=== PATIENT | male | born 1940 | race American Indian/Alaskan Native ===

== ENCOUNTER 2020-06-26 09:39 | Emergency (ER) | payer OTHER ==
[2020-06-26] MEDS ORDERED: DEXTROSE 50% IN WATER (25GM) 50 ML SYRINGE IV ONE ×2 (10:15→11:07)
[2020-06-26] MEDS ORDERED: SODIUM CHLORIDE 0.9% 1000 ML 1,000 ML IV ONE ×3 (10:15→13:26)
--- NOTE | 2020-06-26 10:19 | Emergency Department Report ---
HPI - General Time Seen by Provider: 06/26/20 09:57 - HPI HPI: This is an 79-year-old -[place] male who presents to the emergency department via EMS from home after a welfare check was done and the patient was found to be prone on the floor covered in his own urine. The patient has a history of hypertension, remote prostate cancer, and he had recent left foot surgery done by a inspector subassembly about 1 week ago. The patient was last seen normal/well sometime Monday, by a neighbor. The patient's daughter is currently at bedside and says that she also spoke to him on Monday. The patient lives alone, but normally is able to take care of all of his ADLs. The patient is sleepy, but easily arousable. He is oriented to person, place, time, AAO x3, but still is a poor historian. He is currently incontinent of urine and appears to have some left-sided weakness. The patient was found to have a blood sugar of 47 with EMS. ED Review of Systems ROS: Stated complaint: ALTERED MENTAL STATUS Other details as noted in HPI Comment: Unobtainable due to pts medical conditions Constitutional: weakness Musculoskeletal: arthralgia (Left foot) Neurological: weakness Physical Exam - Physical Exam Physical Exam: GENERAL: Disheveled appearance. Patient is ill-appearing. HENT: Normocephalic. Atraumatic. Patient has dry mucous membranes. EYES: Extraocular motions are intact. Pupils equal reactive to light bilaterally. NECK: Supple. Trachea is midline. CHEST/LUNGS: Clear to auscultation. There is no respiratory distress noted. HEART/CARDIOVASCULAR: Regular. There is moderate tachycardia. There is no murmur. ABDOMEN: Abdomen is soft, nontender. Patient has normal bowel sounds. There is no abdominal distention. SKIN: Skin is warm and dry. The left foot is wet and macerated. There is an ulcerating wound to the left heel. NEURO: The patient is awake, alert, and oriented. The patient is cooperative. There is some slurred speech. Left-sided weakness when compared to right. MUSCULOSKELETAL: There is no tenderness to palpation. ED Course - Reevaluation(s) Reevaluation #1: 06/26/20 10:38 The patient is an 8 on the NIH stroke scale. Last known well time was sometime Wednesday, at least 36 hours ago. Therefore the patient is not a candidate for TPA or thrombectomy. - Consultations Consultation #1: I spoke with the patient's inspector subassembly, Dr. Melisa Herrera. He says that he is able and willing to consult on this patient if he gets admitted to [facility]. The transfer hub is paging the hospitalist service. 06/26/20 13:41 Consultation #2: 06/26/20 15:05 I have spoken to the hospitalist, Dr. Gannon, regarding the patient's presentation and ED course. She felt the patient would be a more appropriately taken care of in the MICU. I spoke to the software implementation specialist, Dr. Box, who has accepted the patient for transfer to the [place] [facility]. He has requested that the patient receive clindamycin and an antibiotic for anaerobic coverage. - ABG Interpretation Ph: 7.349 PCO2: 17 PO2: 122 Bicarbonate: 9.5 Interpretation: respiratory alkalosis, metabolic acidosis ED Medical Decision Making - Lab Data Result diagrams: 06/26/20 10:57 06/26/20 10:57 Lab Results 06/26/20 06/26/20 06/26/20 Range/Units 10:16 10:40 10:57 WBC 23.7 H (4.5-11.0) K/mm3 RBC 4.70 (3.65-5.03) M/mm3 Hgb 12.7 (11.8-15.2) gm/dl Hct 38.5 (35.5-45.6) % MCV 82 L (84-94) fl MCH 27 L (28-32) pg MCHC 33 (32-34) % RDW 17.2 H (13.2-15.2) % Plt Count 74 L (140-440) K/mm3 Add Manual Diff Complete Total Counted 100 Seg Neuts % (Manual) 90.0 H (40.0-70.0) % Lymphocytes % (Manual) 8.0 L (13.4-35.0) % Monocytes % (Manual) 2.0 (0.0-7.3) % Nucleated RBC % Not Reportable Seg Neutrophils # Man 21.3 H (1.8-7.7) K/mm3 Band Neutrophils # 0.0 K/mm3 Lymphocytes # (Manual) 1.9 (1.2-5.4) K/mm3 Abs React Lymphs (Man) 0.0 K/mm3 Monocytes # (Manual) 0.5 (0.0-0.8) K/mm3 Eosinophils # (Manual) 0.0 (0.0-0.4) K/mm3 Basophils # (Manual) 0.0 (0.0-0.1) K/mm3 Metamyelocytes # 0.0 K/mm3 Myelocytes # 0.0 K/mm3 Promyelocytes # 0.0 K/mm3 Blast Cells # 0.0 K/mm3 WBC Morphology Not Reportable Hypersegmented Neuts Not Reportable Hyposegmented Neuts Not Reportable Hypogranular Neuts Not Reportable Smudge Cells Not Reportable Toxic Granulation Not Reportable Toxic Vacuolation Not Reportable Dohle Bodies Not Reportable Pelger-Huet Anomaly Not Reportable Michael Rods Not Reportable Platelet Estimate Consistent w auto Clumped Platelets Not Reportable Plt Clumps, EDTA Not Reportable Large Platelets Not Reportable Giant Platelets Not Reportable Platelet Satelliting Not Reportable Plt Morphology Comment Not Reportable RBC Morphology Not Reportable Dimorphic RBCs Not Reportable Polychromasia Not Reportable Hypochromasia Not Reportable Poikilocytosis Not Reportable Anisocytosis Not Reportable Microcytosis Not Reportable Macrocytosis Not Reportable Spherocytes Not Reportable Pappenheimer Bodies Not Reportable Sickle Cells Not Reportable Target Cells Not Reportable Tear Drop Cells Not Reportable Ovalocytes Not Reportable Helmet Cells Not Reportable Velazquez-Samoset Bodies Not Reportable [place] Rings Not Reportable Bong Cells 1+ Bite Cells Not Reportable Crenated Cell Not Reportable Elliptocytes Not Reportable Acanthocytes (Spur) Rare Rouleaux Not Reportable Hemoglobin C Crystals Not Reportable Schistocytes Rare Malaria parasites Not Reportable Mk Bodies Not Reportable Hem Pathologist Commnt No PT (12.2-14.9) Sec. INR (0.87-1.13) APTT (24.2-36.6) Sec. ABG pH (7.320-7.450) POC ABG pCO2 (32.0-48.0) mmHg POC ABG pO2 (83-108) mmHg POC ABG HCO3 POC ABG Base Excess ABG Hemoglobin (12.0-17.5) ABG Oxyhemoglobin (94-98) ABG Methemoglobin (0.0-1.5) ABG Sodium (136.0-145.0) mmol/L ABG Potassium (3.40-4.50) mmol/L ABG Chloride (98-107) mmol/L ABG Glucose (65-95) mg/dL Carboxyhemoglobin (0.5-1.5) FiO2 Sodium (137-145) mmol/L Potassium (3.6-5.0) mmol/L Chloride (98-107) mmol/L Carbon Dioxide (22-30) mmol/L Anion Gap mmol/L BUN (9-20) mg/dL Creatinine (0.8-1.3) mg/dL Estimated GFR ml/min BUN/Creatinine Ratio % Glucose (75-100) mg/dL POC Glucose 37 L < 10 L (70-105) mg/dL Lactic Acid (0.7-2.0) mmol/L Calcium (8.4-10.2) mg/dL Total Bilirubin (0.1-1.2) mg/dL AST (5-40) units/L ALT (7-56) units/L Alkaline Phosphatase (35-129) units/L Ammonia (25-60) umol/L Total Creatine Kinase (55-170) units/L Troponin T (0.00-0.029) ng/mL Total Protein (6.3-8.2) g/dL Albumin (3.9-5) g/dL Albumin/Globulin Ratio % Triglycerides (2-149) mg/dL Cholesterol (50-199) mg/dL LDL Cholesterol Direct (50-130) mg/dL HDL Cholesterol (40-59) mg/dL Cholesterol/HDL Ratio % TSH (0.270-4.200) mlU/mL Arterial Blood Glucose (65-95) mg/dL Arterial Blood Ionized Calcium (4.6-5.3) mg/dL Urine Color (Yellow) Urine Turbidity (Clear) Urine pH (5.0-7.0) Ur Specific [place] (1.003-1.030) Urine Protein (Negative) mg/dL Urine Glucose (UA) (Negative) mg/dL Urine Ketones (Negative) mg/dL Urine Blood (Negative) Urine Nitrite (Negative) Urine Bilirubin (Negative) Urine Urobilinogen (<2.0) mg/dL Ur Leukocyte Esterase (Negative) Urine WBC (Auto) (0.0-6.0) /HPF Urine RBC (Auto) (0.0-6.0) /HPF Hyaline Casts /LPF Urine Opiates Screen Urine Methadone Screen Ur Barbiturates Screen Ur Phencyclidine Scrn Ur Amphetamines Screen U Benzodiazepines Scrn Urine Cocaine Screen U Marijuana (THC) Screen Drugs of Abuse Note Plasma/Serum Alcohol (0-0.07) % 06/26/20 06/26/20 06/26/20 Range/Units 10:57 10:57 10:57 WBC (4.5-11.0) K/mm3 RBC (3.65-5.03) M/mm3 Hgb (11.8-15.2) gm/dl Hct (35.5-45.6) % MCV (84-94) fl MCH (28-32) pg MCHC (32-34) % RDW (13.2-15.2) % Plt Count (140-440) K/mm3 Add Manual Diff Total Counted Seg Neuts % (Manual) (40.0-70.0) % Lymphocytes % (Manual) (13.4-35.0) % Monocytes % (Manual) (0.0-7.3) % Nucleated RBC % Seg Neutrophils # Man (1.8-7.7) K/mm3 Band Neutrophils # K/mm3 Lymphocytes # (Manual) (1.2-5.4) K/mm3 Abs React Lymphs (Man) K/mm3 Monocytes # (Manual) (0.0-0.8) K/mm3 Eosinophils # (Manual) (0.0-0.4) K/mm3 Basophils # (Manual) (0.0-0.1) K/mm3 Metamyelocytes # K/mm3 Myelocytes # K/mm3 Promyelocytes # K/mm3 Blast Cells # K/mm3 WBC Morphology Hypersegmented Neuts Hyposegmented Neuts Hypogranular Neuts Smudge Cells Toxic Granulation Toxic Vacuolation Dohle Bodies Pelger-Huet Anomaly Michael Rods Platelet Estimate Clumped Platelets Plt Clumps, EDTA Large Platelets Giant Platelets Platelet Satelliting Plt Morphology Comment RBC Morphology Dimorphic RBCs Polychromasia Hypochromasia Poikilocytosis Anisocytosis Microcytosis Macrocytosis Spherocytes Pappenheimer Bodies Sickle Cells Target Cells Tear Drop Cells Ovalocytes Helmet Cells Velazquez-Samoset Bodies [place] Rings Amite Cells Bite Cells Crenated Cell Elliptocytes Acanthocytes (Spur) Rouleaux Hemoglobin C Crystals Schistocytes Malaria parasites Mk Bodies Hem Pathologist Commnt PT 17.9 H (12.2-14.9) Sec. INR 1.49 H (0.87-1.13) APTT 34.6 (24.2-36.6) Sec. ABG pH (7.320-7.450) POC ABG pCO2 (32.0-48.0) mmHg POC ABG pO2 (83-108) mmHg POC ABG HCO3 POC ABG Base Excess ABG Hemoglobin (12.0-17.5) ABG Oxyhemoglobin (94-98) ABG Methemoglobin (0.0-1.5) ABG Sodium (136.0-145.0) mmol/L ABG Potassium (3.40-4.50) mmol/L ABG Chloride (98-107) mmol/L ABG Glucose (65-95) mg/dL Carboxyhemoglobin (0.5-1.5) FiO2 Sodium 127 L (137-145) mmol/L Potassium 4.5 (3.6-5.0) mmol/L Chloride 88.1 L (98-107) mmol/L Carbon Dioxide 12 L (22-30) mmol/L Anion Gap 31 mmol/L BUN 126 H (9-20) mg/dL Creatinine 6.5 H (0.8-1.3) mg/dL Estimated GFR 10 ml/min BUN/Creatinine Ratio 19 % Glucose 389 H (75-100) mg/dL POC Glucose (70-105) mg/dL Lactic Acid 3.70 H* (0.7-2.0) mmol/L Calcium 7.0 L (8.4-10.2) mg/dL Total Bilirubin 1.90 H (0.1-1.2) mg/dL AST 355 H (5-40) units/L ALT 227 H (7-56) units/L Alkaline Phosphatase 121 (35-129) units/L Ammonia (25-60) umol/L Total Creatine Kinase (55-170) units/L Troponin T 0.145 H* (0.00-0.029) ng/mL Total Protein 5.1 L (6.3-8.2) g/dL Albumin 2.3 L (3.9-5) g/dL Albumin/Globulin Ratio 0.8 % Triglycerides 72 (2-149) mg/dL Cholesterol 58 (50-199) mg/dL LDL Cholesterol Direct 10 L (50-130) mg/dL HDL Cholesterol 22 L (40-59) mg/dL Cholesterol/HDL Ratio 2.63 % TSH (0.270-4.200) mlU/mL Arterial Blood Glucose (65-95) mg/dL Arterial Blood Ionized Calcium (4.6-5.3) mg/dL Urine Color (Yellow) Urine Turbidity (Clear) Urine pH (5.0-7.0) Ur Specific [place] (1.003-1.030) Urine Protein (Negative) mg/dL Urine Glucose (UA) (Negative) mg/dL Urine Ketones (Negative) mg/dL Urine Blood (Negative) Urine Nitrite (Negative) Urine Bilirubin (Negative) Urine Urobilinogen (<2.0) mg/dL Ur Leukocyte Esterase (Negative) Urine WBC (Auto) (0.0-6.0) /HPF Urine RBC (Auto) (0.0-6.0) /HPF Hyaline Casts /LPF Urine Opiates Screen Urine Methadone Screen Ur Barbiturates Screen Ur Phencyclidine Scrn Ur Amphetamines Screen U Benzodiazepines Scrn Urine Cocaine Screen U Marijuana (THC) Screen Drugs of Abuse Note Plasma/Serum Alcohol (0-0.07) % 06/26/20 06/26/20 06/26/20 Range/Units 10:57 10:57 10:57 WBC (4.5-11.0) K/mm3 RBC (3.65-5.03) M/mm3 Hgb (11.8-15.2) gm/dl Hct (35.5-45.6) % MCV (84-94) fl MCH (28-32) pg MCHC (32-34) % RDW (13.2-15.2) % Plt Count (140-440) K/mm3 Add Manual Diff Total Counted Seg Neuts % (Manual) (40.0-70.0) % Lymphocytes % (Manual) (13.4-35.0) % Monocytes % (Manual) (0.0-7.3) % Nucleated RBC % Seg Neutrophils # Man (1.8-7.7) K/mm3 Band Neutrophils # K/mm3 Lymphocytes # (Manual) (1.2-5.4) K/mm3 Abs React Lymphs (Man) K/mm3 Monocytes # (Manual) (0.0-0.8) K/mm3 Eosinophils # (Manual) (0.0-0.4) K/mm3 Basophils # (Manual) (0.0-0.1) K/mm3 Metamyelocytes # K/mm3 Myelocytes # K/mm3 Promyelocytes # K/mm3 Blast Cells # K/mm3 WBC Morphology Hypersegmented Neuts Hyposegmented Neuts Hypogranular Neuts Smudge Cells Toxic Granulation Toxic Vacuolation Dohle Bodies Pelger-Huet Anomaly Michael Rods Platelet Estimate Clumped Platelets Plt Clumps, EDTA Large Platelets Giant Platelets Platelet Satelliting Plt Morphology Comment RBC Morphology Dimorphic RBCs Polychromasia Hypochromasia Poikilocytosis Anisocytosis Microcytosis Macrocytosis Spherocytes Pappenheimer Bodies Sickle Cells Target Cells Tear Drop Cells Ovalocytes Helmet Cells Velazquez-Samoset Bodies [place] Rings Amite Cells Bite Cells Crenated Cell Elliptocytes Acanthocytes (Spur) Rouleaux Hemoglobin C Crystals Schistocytes Malaria parasites Mk Bodies Hem Pathologist Commnt PT (12.2-14.9) Sec. INR (0.87-1.13) APTT (24.2-36.6) Sec. ABG pH (7.320-7.450) POC ABG pCO2 (32.0-48.0) mmHg POC ABG pO2 (83-108) mmHg POC ABG HCO3 POC ABG Base Excess ABG Hemoglobin (12.0-17.5) ABG Oxyhemoglobin (94-98) ABG Methemoglobin (0.0-1.5) ABG Sodium (136.0-145.0) mmol/L ABG Potassium (3.40-4.50) mmol/L ABG Chloride (98-107) mmol/L ABG Glucose (65-95) mg/dL Carboxyhemoglobin (0.5-1.5) FiO2 Sodium (137-145) mmol/L Potassium (3.6-5.0) mmol/L Chloride (98-107) mmol/L Carbon Dioxide (22-30) mmol/L Anion Gap mmol/L BUN (9-20) mg/dL Creatinine (0.8-1.3) mg/dL Estimated GFR ml/min BUN/Creatinine Ratio % Glucose (75-100) mg/dL POC Glucose (70-105) mg/dL Lactic Acid (0.7-2.0) mmol/L Calcium (8.4-10.2) mg/dL Total Bilirubin (0.1-1.2) mg/dL AST (5-40) units/L ALT (7-56) units/L Alkaline Phosphatase (35-129) units/L Ammonia 23.0 L (25-60) umol/L Total Creatine Kinase 3468 H (55-170) units/L Troponin T (0.00-0.029) ng/mL Total Protein (6.3-8.2) g/dL Albumin (3.9-5) g/dL Albumin/Globulin Ratio % Triglycerides (2-149) mg/dL Cholesterol (50-199) mg/dL LDL Cholesterol Direct (50-130) mg/dL HDL Cholesterol (40-59) mg/dL Cholesterol/HDL Ratio % TSH (0.270-4.200) mlU/mL Arterial Blood Glucose (65-95) mg/dL Arterial Blood Ionized Calcium (4.6-5.3) mg/dL Urine Color (Yellow) Urine Turbidity (Clear) Urine pH (5.0-7.0) Ur Specific [place] (1.003-1.030) Urine Protein (Negative) mg/dL Urine Glucose (UA) (Negative) mg/dL Urine Ketones (Negative) mg/dL Urine Blood (Negative) Urine Nitrite (Negative) Urine Bilirubin (Negative) Urine Urobilinogen (<2.0) mg/dL Ur Leukocyte Esterase (Negative) Urine WBC (Auto) (0.0-6.0) /HPF Urine RBC (Auto) (0.0-6.0) /HPF Hyaline Casts /LPF Urine Opiates Screen Urine Methadone Screen Ur Barbiturates Screen Ur Phencyclidine Scrn Ur Amphetamines Screen U Benzodiazepines Scrn Urine Cocaine Screen U Marijuana (THC) Screen Drugs of Abuse Note Plasma/Serum Alcohol < 0.01 (0-0.07) % 06/26/20 06/26/20 06/26/20 Range/Units 10:57 10:58 11:21 WBC (4.5-11.0) K/mm3 RBC (3.65-5.03) M/mm3 Hgb (11.8-15.2) gm/dl Hct (35.5-45.6) % MCV (84-94) fl MCH (28-32) pg MCHC (32-34) % RDW (13.2-15.2) % Plt Count (140-440) K/mm3 Add Manual Diff Total Counted Seg Neuts % (Manual) (40.0-70.0) % Lymphocytes % (Manual) (13.4-35.0) % Monocytes % (Manual) (0.0-7.3) % Nucleated RBC % Seg Neutrophils # Man (1.8-7.7) K/mm3 Band Neutrophils # K/mm3 Lymphocytes # (Manual) (1.2-5.4) K/mm3 Abs React Lymphs (Man) K/mm3 Monocytes # (Manual) (0.0-0.8) K/mm3 Eosinophils # (Manual) (0.0-0.4) K/mm3 Basophils # (Manual) (0.0-0.1) K/mm3 Metamyelocytes # K/mm3 Myelocytes # K/mm3 Promyelocytes # K/mm3 Blast Cells # K/mm3 WBC Morphology Hypersegmented Neuts Hyposegmented Neuts Hypogranular Neuts Smudge Cells Toxic Granulation Toxic Vacuolation Dohle Bodies Pelger-Huet Anomaly Michael Rods Platelet Estimate Clumped Platelets Plt Clumps, EDTA Large Platelets Giant Platelets Platelet Satelliting Plt Morphology Comment RBC Morphology Dimorphic RBCs Polychromasia Hypochromasia Poikilocytosis Anisocytosis Microcytosis Macrocytosis Spherocytes Pappenheimer Bodies Sickle Cells Target Cells Tear Drop Cells Ovalocytes Helmet Cells Velazquez-Samoset Bodies [place] Rings Amite Cells Bite Cells Crenated Cell Elliptocytes Acanthocytes (Spur) Rouleaux Hemoglobin C Crystals Schistocytes Malaria parasites Mk Bodies Hem Pathologist Commnt PT (12.2-14.9) Sec. INR (0.87-1.13) APTT (24.2-36.6) Sec. ABG pH (7.320-7.450) POC ABG pCO2 (32.0-48.0) mmHg POC ABG pO2 (83-108) mmHg POC ABG HCO3 POC ABG Base Excess ABG Hemoglobin (12.0-17.5) ABG Oxyhemoglobin (94-98) ABG Methemoglobin (0.0-1.5) ABG Sodium (136.0-145.0) mmol/L ABG Potassium (3.40-4.50) mmol/L ABG Chloride (98-107) mmol/L ABG Glucose (65-95) mg/dL Carboxyhemoglobin (0.5-1.5) FiO2 Sodium (137-145) mmol/L Potassium (3.6-5.0) mmol/L Chloride (98-107) mmol/L Carbon Dioxide (22-30) mmol/L Anion Gap mmol/L BUN (9-20) mg/dL Creatinine (0.8-1.3) mg/dL Estimated GFR ml/min BUN/Creatinine Ratio % Glucose (75-100) mg/dL POC Glucose 167 H (70-105) mg/dL Lactic Acid (0.7-2.0) mmol/L Calcium (8.4-10.2) mg/dL Total Bilirubin (0.1-1.2) mg/dL AST (5-40) units/L ALT (7-56) units/L Alkaline Phosphatase (35-129) units/L Ammonia (25-60) umol/L Total Creatine Kinase (55-170) units/L Troponin T (0.00-0.029) ng/mL Total Protein (6.3-8.2) g/dL Albumin (3.9-5) g/dL Albumin/Globulin Ratio % Triglycerides (2-149) mg/dL Cholesterol (50-199) mg/dL LDL Cholesterol Direct (50-130) mg/dL HDL Cholesterol (40-59) mg/dL Cholesterol/HDL Ratio % TSH 2.570 (0.270-4.200) mlU/mL Arterial Blood Glucose (65-95) mg/dL Arterial Blood Ionized Calcium (4.6-5.3) mg/dL Urine Color Yellow (Yellow) Urine Turbidity Slightly-cloudy (Clear) Urine pH 5.0 (5.0-7.0) Ur Specific [place] 1.013 (1.003-1.030) Urine Protein 100 mg/dl (Negative) mg/dL Urine Glucose (UA) 150 (Negative) mg/dL Urine Ketones Neg (Negative) mg/dL Urine Blood Lg (Negative) Urine Nitrite Neg (Negative) Urine Bilirubin Neg (Negative) Urine Urobilinogen 2.0 (<2.0) mg/dL Ur Leukocyte Esterase Neg (Negative) Urine WBC (Auto) 3.0 (0.0-6.0) /HPF Urine RBC (Auto) 2.0 (0.0-6.0) /HPF Hyaline Casts 1 /LPF Urine Opiates Screen Urine Methadone Screen Ur Barbiturates Screen Ur Phencyclidine Scrn Ur Amphetamines Screen U Benzodiazepines Scrn Urine Cocaine Screen U Marijuana (THC) Screen Drugs of Abuse Note Plasma/Serum Alcohol (0-0.07) % 06/26/20 06/26/20 06/26/20 Range/Units 11:21 12:02 12:25 WBC (4.5-11.0) K/mm3 RBC (3.65-5.03) M/mm3 Hgb (11.8-15.2) gm/dl Hct (35.5-45.6) % MCV (84-94) fl MCH (28-32) pg MCHC (32-34) % RDW (13.2-15.2) % Plt Count (140-440) K/mm3 Add Manual Diff Total Counted Seg Neuts % (Manual) (40.0-70.0) % Lymphocytes % (Manual) (13.4-35.0) % Monocytes % (Manual) (0.0-7.3) % Nucleated RBC % Seg Neutrophils # Man (1.8-7.7) K/mm3 Band Neutrophils # K/mm3 Lymphocytes # (Manual) (1.2-5.4) K/mm3 Abs React Lymphs (Man) K/mm3 Monocytes # (Manual) (0.0-0.8) K/mm3 Eosinophils # (Manual) (0.0-0.4) K/mm3 Basophils # (Manual) (0.0-0.1) K/mm3 Metamyelocytes # K/mm3 Myelocytes # K/mm3 Promyelocytes # K/mm3 Blast Cells # K/mm3 WBC Morphology Hypersegmented Neuts Hyposegmented Neuts Hypogranular Neuts Smudge Cells Toxic Granulation Toxic Vacuolation Dohle Bodies Pelger-Huet Anomaly Michael Rods Platelet Estimate Clumped Platelets Plt Clumps, EDTA Large Platelets Giant Platelets Platelet Satelliting Plt Morphology Comment RBC Morphology Dimorphic RBCs Polychromasia Hypochromasia Poikilocytosis Anisocytosis Microcytosis Macrocytosis Spherocytes Pappenheimer Bodies Sickle Cells Target Cells Tear Drop Cells Ovalocytes Helmet Cells Velazquez-Samoset Bodies [place] Rings Amite Cells Bite Cells Crenated Cell Elliptocytes Acanthocytes (Spur) Rouleaux Hemoglobin C Crystals Schistocytes Malaria parasites Mk Bodies Hem Pathologist Commnt PT (12.2-14.9) Sec. INR (0.87-1.13) APTT (24.2-36.6) Sec. ABG pH (7.320-7.450) POC ABG pCO2 (32.0-48.0) mmHg POC ABG pO2 (83-108) mmHg POC ABG HCO3 POC ABG Base Excess ABG Hemoglobin (12.0-17.5) ABG Oxyhemoglobin (94-98) ABG Methemoglobin (0.0-1.5) ABG Sodium (136.0-145.0) mmol/L ABG Potassium (3.40-4.50) mmol/L ABG Chloride (98-107) mmol/L ABG Glucose (65-95) mg/dL Carboxyhemoglobin (0.5-1.5) FiO2 Sodium (137-145) mmol/L Potassium (3.6-5.0) mmol/L Chloride (98-107) mmol/L Carbon Dioxide (22-30) mmol/L Anion Gap mmol/L BUN (9-20) mg/dL Creatinine (0.8-1.3) mg/dL Estimated GFR ml/min BUN/Creatinine Ratio % Glucose (75-100) mg/dL POC Glucose 247 H (70-105) mg/dL Lactic Acid 3.80 H* (0.7-2.0) mmol/L Calcium (8.4-10.2) mg/dL Total Bilirubin (0.1-1.2) mg/dL AST (5-40) units/L ALT (7-56) units/L Alkaline Phosphatase (35-129) units/L Ammonia (25-60) umol/L Total Creatine Kinase (55-170) units/L Troponin T (0.00-0.029) ng/mL Total Protein (6.3-8.2) g/dL Albumin (3.9-5) g/dL Albumin/Globulin Ratio % Triglycerides (2-149) mg/dL Cholesterol (50-199) mg/dL LDL Cholesterol Direct (50-130) mg/dL HDL Cholesterol (40-59) mg/dL Cholesterol/HDL Ratio % TSH (0.270-4.200) mlU/mL Arterial Blood Glucose (65-95) mg/dL Arterial Blood Ionized Calcium (4.6-5.3) mg/dL Urine Color (Yellow) Urine Turbidity (Clear) Urine pH (5.0-7.0) Ur Specific [place] (1.003-1.030) Urine Protein (Negative) mg/dL Urine Glucose (UA) (Negative) mg/dL Urine Ketones (Negative) mg/dL Urine Blood (Negative) Urine Nitrite (Negative) Urine Bilirubin (Negative) Urine Urobilinogen (<2.0) mg/dL Ur Leukocyte Esterase (Negative) Urine WBC (Auto) (0.0-6.0) /HPF Urine RBC (Auto) (0.0-6.0) /HPF Hyaline Casts /LPF Urine Opiates Screen Negative Urine Methadone Screen Negative Ur Barbiturates Screen Negative Ur Phencyclidine Scrn Negative Ur Amphetamines Screen Negative U Benzodiazepines Scrn Negative Urine Cocaine Screen Negative U Marijuana (THC) Screen Negative Drugs of Abuse Note Disclamer Plasma/Serum Alcohol (0-0.07) % 06/26/20 Range/Units 13:51 WBC (4.5-11.0) K/mm3 RBC (3.65-5.03) M/mm3 Hgb (11.8-15.2) gm/dl Hct (35.5-45.6) % MCV (84-94) fl MCH (28-32) pg MCHC (32-34) % RDW (13.2-15.2) % Plt Count (140-440) K/mm3 Add Manual Diff Total Counted Seg Neuts % (Manual) (40.0-70.0) % Lymphocytes % (Manual) (13.4-35.0) % Monocytes % (Manual) (0.0-7.3) % Nucleated RBC % Seg Neutrophils # Man (1.8-7.7) K/mm3 Band Neutrophils # K/mm3 Lymphocytes # (Manual) (1.2-5.4) K/mm3 Abs React Lymphs (Man) K/mm3 Monocytes # (Manual) (0.0-0.8) K/mm3 Eosinophils # (Manual) (0.0-0.4) K/mm3 Basophils # (Manual) (0.0-0.1) K/mm3 Metamyelocytes # K/mm3 Myelocytes # K/mm3 Promyelocytes # K/mm3 Blast Cells # K/mm3 WBC Morphology Hypersegmented Neuts Hyposegmented Neuts Hypogranular Neuts Smudge Cells Toxic Granulation Toxic Vacuolation Dohle Bodies Pelger-Huet Anomaly Michael Rods Platelet Estimate Clumped Platelets Plt Clumps, EDTA Large Platelets Giant Platelets Platelet Satelliting Plt Morphology Comment RBC Morphology Dimorphic RBCs Polychromasia Hypochromasia Poikilocytosis Anisocytosis Microcytosis Macrocytosis Spherocytes Pappenheimer Bodies Sickle Cells Target Cells Tear Drop Cells Ovalocytes Helmet Cells Velazquez-Samoset Bodies [place] Rings Amite Cells Bite Cells Crenated Cell Elliptocytes Acanthocytes (Spur) Rouleaux Hemoglobin C Crystals Schistocytes Malaria parasites Mk Bodies Hem Pathologist Commnt PT (12.2-14.9) Sec. INR (0.87-1.13) APTT (24.2-36.6) Sec. ABG pH 7.349 (7.320-7.450) POC ABG pCO2 17.7 L (32.0-48.0) mmHg POC ABG pO2 127.6 H (83-108) mmHg POC ABG HCO3 9.5 POC ABG Base Excess -13.5 ABG Hemoglobin 13.6 (12.0-17.5) ABG Oxyhemoglobin 96.8 (94-98) ABG Methemoglobin 0.3 (0.0-1.5) ABG Sodium 129.6 L (136.0-145.0) mmol/L ABG Potassium 3.9 (3.40-4.50) mmol/L ABG Chloride 102.0 (98-107) mmol/L ABG Glucose 230 H (65-95) mg/dL Carboxyhemoglobin 1.5 (0.5-1.5) FiO2 28 Sodium (137-145) mmol/L Potassium (3.6-5.0) mmol/L Chloride (98-107) mmol/L Carbon Dioxide (22-30) mmol/L Anion Gap mmol/L BUN (9-20) mg/dL Creatinine (0.8-1.3) mg/dL Estimated GFR ml/min BUN/Creatinine Ratio % Glucose (75-100) mg/dL POC Glucose (70-105) mg/dL Lactic Acid (0.7-2.0) mmol/L Calcium (8.4-10.2) mg/dL Total Bilirubin (0.1-1.2) mg/dL AST (5-40) units/L ALT (7-56) units/L Alkaline Phosphatase (35-129) units/L Ammonia (25-60) umol/L Total Creatine Kinase (55-170) units/L Troponin T (0.00-0.029) ng/mL Total Protein (6.3-8.2) g/dL Albumin (3.9-5) g/dL Albumin/Globulin Ratio % Triglycerides (2-149) mg/dL Cholesterol (50-199) mg/dL LDL Cholesterol Direct (50-130) mg/dL HDL Cholesterol (40-59) mg/dL Cholesterol/HDL Ratio % TSH (0.270-4.200) mlU/mL Arterial Blood Glucose 230 H (65-95) mg/dL Arterial Blood Ionized Calcium 3.8 L (4.6-5.3) mg/dL Urine Color (Yellow) Urine Turbidity (Clear) Urine pH (5.0-7.0) Ur Specific [place] (1.003-1.030) Urine Protein (Negative) mg/dL Urine Glucose (UA) (Negative) mg/dL Urine Ketones (Negative) mg/dL Urine Blood (Negative) Urine Nitrite (Negative) Urine Bilirubin (Negative) Urine Urobilinogen (<2.0) mg/dL Ur Leukocyte Esterase (Negative) Urine WBC (Auto) (0.0-6.0) /HPF Urine RBC (Auto) (0.0-6.0) /HPF Hyaline Casts /LPF Urine Opiates Screen Urine Methadone Screen Ur Barbiturates Screen Ur Phencyclidine Scrn Ur Amphetamines Screen U Benzodiazepines Scrn Urine Cocaine Screen U Marijuana (THC) Screen Drugs of Abuse Note Plasma/Serum Alcohol (0-0.07) % - EKG Data -: EKG Interpreted by Me - EKG Data When compared to previous EKG there are: previous EKG unavailable Interpretation: other (Atrial flutter with 2-1 AV block, normal axis, prolonged QTC, right bundle branch block) - Radiology Data Radiology results: report reviewed, image reviewed interpreted by me: Chest x-ray does not show any acute process. There are no pleural effusions, obvious pneumonia and there is no pneumothorax. No significant cardiomegaly. CT cervical spine wo con, CT head/brain wo con INDICATION: AMS, fall. TECHNIQUE: CT head and cervical spine without contrast. All CT scans at this location are performed using CT dose reduction for ALARA by means of automated exposure contr ol. COMPARISON: None. FINDINGS: HEAD: Intracranial: Mendoza-white matter differentiation is maintained. No intracranial hemorrhage. No extra axial collection.. No hydrocephalus. No herniation. Sinuses: Paranasal sinuses and mastoid air cells are essentially clear. Orbits: Globes are intact Calvarium: No acute fracture. CERVICAL: Alignment: 2 to 3 mm degenerative retrolisthesis from C2-C3 to C5-C6. Vertebrae: No fracture. Vertebral body heights are preserved. C1 and C2 are congruent. Atlantooccipital joint is maintained. Spondylolysis: Multilevel spondylosis with moderate spinal canal stenosis at C5-C6. Facet arthropathy with multilevel severe osseous foraminal narrowing. Soft tissues: No prevertebral soft tissue thickening. Additional findings: No significant additional findings. IMPRESSION: 1. No acute intracranial abnormality. 2.No cervical spine fracture. LEFT FOOT 2 VIEW(S) INDICATION / CLINICAL INFORMATION: foot pain, infection COMPARISON: None available. FINDINGS: BONES / JOINT(S): No acute fracture. Positional deformity of the first through fifth MTP joints. No tierra dislocation. Moderate midfoot arthrosis. Diffuse osteopenia. Cortical irregula rity and sclerosis noted posterior aspect the calcaneus concerning for osteomyelitis. SOFT TISSUES: Large soft tissue ulceration over the plantar surface of the posterior calcaneus. Soft tissue gas noted throughout the foot extending into the lower leg. There is soft tissue swelling and edema. These findings are consistent with extensive soft tissue infectious process. ADDITIONAL FINDINGS: None. - Medical Decision Making This patient presents to the emergency department after he was found down in his home, prone, covered in urine. Patient is awake and able to answer orientation questions but he does have some level of confusion and will go right back to sleep if not stimulated. He appears to have some left-sided weakness when compared to the right. Last known well time is sometime Monday and therefore the patient is outside of the window for any TPA or neuro intervention. CT scan of the head without contrast did not show any large vessel occlusion, hemorrhage, or any other acute process. CT of the cervical spine did not show any fracture, subluxation, or any acute process. Chest x-ray did not show any pneumonia, pleural effusions, pneumothorax, focal consolidation, or any acute process. The patient's left foot is macerated, edematous and there is an ulcerating wound to the left heel. An x-ray was done of the left foot that shows some posterior calcaneal osteomyelitis and there is some air versus gas throughout the foot. The patient's labs show multiple abnormalities. He has a leukocytosis of 24,000. There is acute renal failure with a GFR of 10. The patient has signs of liver failure with severely elevated transaminase levels. He has a lactic acidosis. There is thrombocytopenia. The patient is starting to develop rhabdomyolysis with a CK of about 3500. Initially the patient had hypoglycemia and was given 2 different amps of D50. His blood sugar then came back at about 300. It has slowly decreased back down to about 120 but the patient has also received multiple liters of IV fluid. Patient was started on vancomycin and Rocephin for the osteomyelitis. The patient was later given some clindamycin. The patient requires transfer to another facility as we do not have an orthopedist or inspector subassembly on-call to take care of the osteomyelitis versus gas gangrene. As per the consultation section, I eventually spoke with the MICU software implementation specialist at [facility] and the patient was accepted for transfer. It should be noted that the patient did not have any sustained hypoxia. The last set of vitals shows a pulse ox of 83% but I do not believe that was a good waveform as the patient was monitored for close to 8 hours and there was no signs of respiratory distress or failure. Critical Care Time: Yes Critical care time in (mins) excluding proc time.: 45 Critical care attestation.: If time is entered above; I have spent that time in minutes in the direct care of this critically ill patient, excluding procedure time. Critical care time was spent on this patient in doing his initial evaluation, multiple reevaluations, ordering and interpretation of labs and imaging, IV fluid resuscitation, glucose for his hypoglycemic episode, multiple IV antibiotics, discussion with the [facility] hospitalist and software implementation specialist, multiple discussions with the patient and his daughter. Critical Care Time: 45 minutes ED Disposition Clinical Impression: Hyponatremia, Lactic acidosis, Elevated troponin, Transaminitis Acute renal failure Qualifiers: Acute renal failure type: unspecified Qualified Code(s): N17.9 - Acute kidney failure, unspecified Sepsis Qualifiers: Sepsis type: sepsis due to unspecified organism Sepsis acute organ dysfunction status: with acute organ dysfunction Severe sepsis acute organ dysfunction type: acute renal failure Acute renal failure type: unspecified Severe sepsis shock status: unspecified Qualified Code(s): A41.9 - Sepsis, unspecified organism; R65.20 - Severe sepsis without septic shock; N17.9 - Acute kidney failure, unspecified Osteomyelitis Qualifiers: Osteomyelitis type: unspecified type Osteomyelitis location: foot Laterality: left Qualified Code(s): M86.9 - Osteomyelitis, unspecified Disposition: DC/TX-70 ANOTHER TYPE HLTHCARE Is pt being admited?: No Condition: Serious Time of Disposition: 20:44 - Assessment Assessment Interval: Baseline - Level of Consciousness 1a. Level of Consciousness: arousable/minor stimuli - LOC Questions 1b. LOC Questions: answers both correctly - LOC Command 1c. LOC Commands: performs tasks correctly - Best Gaze 2. Best Gaze: normal - Visual 3. Visual: no visual loss - Facial Palsy 4. Facial Palsy: normal symmetrical movement - Motor Arm 5a. Motor Arm Left: no gravity effort 5b. Motor Arm Right: no drift - Motor Leg 6a. Motor Leg Left: no gravity effort 6b. Motor Leg Right: no drift - Limb Ataxia 7. Limb Ataxia: absent - Sensory 8. Sensory: normal - Best Language 9. Best Language: no aphasia - Dysarthria 10. Dysarthria: mild/moderate dysarthria - Extinction and Inattention 11. Extinction/Inattention: no abnormality - Scoring Total Score: 8 Stroke Severity: Moderate Stroke
[2020-06-26] MEDS ORDERED: cefTRIAXone/NS 1 GM/50 ML 1 GM/50 ML BAG IV ONE (10:56)
[2020-06-26 11:10] LABS: Hematocrit 38.5 % (35.5-45.6); Hemoglobin 12.7 gm/dl (11.8-15.2); Mean Corpuscular HGB Conc 33 % (32-34); Mean Corpuscular Volume 82 fl (84-94); Red Cell Distribution Width 17.2 % (13.2-15.2)
--- NOTE | 2020-06-26 11:11 | XRay Report ---
LEFT FOOT 2 VIEW(S) INDICATION / CLINICAL INFORMATION: foot pain, infection COMPARISON: None available. FINDINGS: BONES / JOINT(S): No acute fracture. Positional deformity of the first through fifth MTP joints. No f rank dislocation. Moderate midfoot arthrosis. Diffuse osteopenia. Cortical irregularity and sclerosis noted posterior aspect the calcaneus concerning for osteomyelitis. SOFT TISSUES: Large soft tissue ulceration over the plantar surface of the posterior calcaneus. Soft tissue gas noted throughout the foot extending into the lower leg. There is soft tissue swelling and edema. These findings are consistent with extensive soft tissue infectious process. ADDITIONAL FINDINGS: None. Signer Name: Mike Tucker MD Signed: 06/26/2020 11:06 AM Workstation Name: [id number]
[2020-06-26] MEDS ORDERED: VANCOMYCIN/NS 1 GM/250 ML 1 GM/250 ML BAG IV ONE (11:12)
[2020-06-26 11:20] LABS: INR 1.49 (0.87-1.13)
[2020-06-26 11:21] LABS: Partial Thromboplastin Time 34.6 Sec. (24.2-36.6)
--- NOTE | 2020-06-26 11:22 | XRay Report ---
CHEST 1 VIEW 06/26/2020 10:13 AM INDICATION / CLINICAL INFORMATION: Altered mental status. COMPARISON: None available. FINDINGS: SUPPORT DEVICES: None. HEART / MEDIASTINUM: No significant abnormality. LUNGS / PLEURA: No confluent infiltrates or pleural effusions. No pneumothorax. ADDITIONAL FINDINGS: No significant additional findings. IMPRESSION: 1. No acute findings. Signer Name: Mike Tucker MD Signed: 06/26/2020 11:17 AM Workstation Name: [id number]
[2020-06-26 11:28] LABS: Albumin 2.3 g/dL (3.9-5); Platelet Count 74 K/mm3 (140-440)
[2020-06-26 11:39] LABS: Bilirubin,Urine NEG (Negative); Blood,Urine LG (Negative); Color,Urine Yellow (Yellow); Hyaline Casts,Urine 1 /LPF
[2020-06-26 11:53] LABS: Amphetamine Screen,Urine Negative; Benzodiazepines Screen,Urine Negative; Cannabinoid Screen,Urine Negative; Cocaine Screen,Urine Negative; Methadone Screen,Urine Negative; Opiate Screen,Urine Negative
[2020-06-26 12:19] LABS: Chol/HDL Ratio 2.63 %
--- NOTE | 2020-06-26 12:51 | Cat Scan Report ---
CT cervical spine wo con, CT head/brain wo con INDICATION: AMS, fall. TECHNIQUE: CT head and cervical spine without contrast. All CT scans at this location are performed u sing CT dose reduction for ALARA by means of automated exposure control. COMPARISON: None. FINDINGS: HEAD: Intracranial: Mendoza-white matter differentiation is maintained. No intracranial hemorrhage. No extra a xial collection.. No hydrocephalus. No herniation. Sinuses: Paranasal sinuses and mastoid air cells are essentially clear. Orbits: Globes are intact Calvarium: No acute fracture. CERVICAL: Alignment: 2 to 3 mm degenerative retrolisthesis from C2-C3 to C5-C6. Vertebrae: No fracture. Vertebral body heights are preserved. C1 and C2 are congruent. Atlantooccipi dorothea joint is maintained. Spondylolysis: Multilevel spondylosis with moderate spinal canal stenosis at C5-C6. Facet arthropath y with multilevel severe osseous foraminal narrowing. Soft tissues: No prevertebral soft tissue thickening. Additional findings: No significant additional findings. IMPRESSION: 1. No acute intracranial abnormality. 2.No cervical spine fracture. Signer Name: Stalin Zarate MD Signed: 06/26/2020 12:46 PM Workstation Name: [id number]
[2020-06-26 13:08] LABS: Total Cells Counted 100
[2020-06-26 13:18] LABS: Burr Cells 1+
[2020-06-26 13:22] LABS: Platelet Estimate Consistent w Auto; Schistocytes Rare
[2020-06-26 18:40] VITALS: BP 92/61
== END 2020-06-26 18:41 | disposition other institution (70) ==
LOC: ED 09:39
DX: A41.9 Sepsis, unspecified organism (principal); N17.9 Acute kidney failure, unspecified; M86.9 Osteomyelitis, unspecified; E87.1 Hypo-osmolality and hyponatremia; E87.2 Acidosis; R74.01 Elevation of levels of liver transaminase levels; R77.8 Other specified abnormalities of plasma proteins; I10 Essential (primary) hypertension; E11.9 Type 2 diabetes mellitus without complications
CPT/HCPCS: 36415; 70450; 71045; 72125; 73620; 80053; 80061; 80307; 81001; 82140; 82550; 82805; 82962; 84443; 84484; 85007; 85025; 85610; 85730; 87040; 87076; 87086; 87186; 93005; 96361; 96365; 96367; 96375; 96376; 99291; J0696; J3370; J7030; 80320; G0480